=== PATIENT | female | born 1985 | race Two or more races ===

== ENCOUNTER 2020-03-09 16:40 | Emergency (ER) | payer SELFPAY ==
[2020-03-09] MEDS ORDERED: Alum Hydroxide/Mag Hydroxide 15 ML, Lidocaine 2% 15 ML PO ONE ×2 (17:07)
[2020-03-09] MEDS ORDERED: Sodium Chloride 0.9% 10 ML Syringe FLUSH PRN (17:26)
[2020-03-09] MEDS ORDERED: Morphine 4 MG/ML VIAL IVPUSH ONE (17:29)
[2020-03-09] MEDS ORDERED: Ondansetron 4 MG/2 ML SDV IVPUSH ONE (17:29)
[2020-03-09] MEDS ORDERED: Sodium Chloride 0.9% 1,000 ML IV SCH (17:30)
[2020-03-09] MEDS ORDERED: Pantoprazole 40 MG Vial IVPUSH SCH (17:45)
--- NOTE | 2020-03-09 18:33 | EDM.PDOC ---
ED HPI GENERAL MEDICAL PROBLEM - General Chief Complaint: Abdominal Pain Stated Complaint: STOMACH PAINS,BACK PAIN Time Seen by Provider: 03/09/20 16:55 Source of Information: Reports: Patient History Limitations: Reports: No Limitations - History of Present Illness INITIAL COMMENTS - FREE TEXT/NARRATIVE: Patient presented to the ED because of epigastric and LUQ pain which started 2 days ago. The pain is sharp and burning, 7/10, with associated nausea but no vomiting. There is no melena or hematochezia. There is no fever,cough/cold symptoms. She has a h/o PUD and is taking omeprazole 20 mg daily. epigastric Pain Score (Numeric/FACES): 2 - Related Data Allergies Allergy/AdvReac Type Severity Reaction Status Date / Time No Known Allergies Allergy Verified 03/09/20 16:50 Home Meds: Home Meds Omeprazole 20 mg PO DAILY #60 tablet. 03/09/20 [Rx] Sennosides/Docusate Sodium [Senna-S] 2 each PO DAILY PRN #30 tablet 03/09/20 [Rx] Past Medical History Gastrointestinal History: Reports: Other (See Below) Other Gastrointestinal History: states that she recently is diagnosed with ulcer and is supposed to be for EGD. Social & Family History - Family History Family Medical History: Noncontributory - Tobacco Use Smoking Status *Q: Current Every Day Smoker Years of Tobacco use: 10 Packs/Tins Daily: 0.3 Second Hand Smoke Exposure: Yes - Caffeine Use Caffeine Use: Reports: Coffee, Energy Drinks, Soda - Recreational Drug Use Recreational Drug Use: Yes Recreational Drug Type: Reports: Marijuana/Hashish ED ROS GENERAL - Review of Systems Review Of Systems: See Below Constitutional: Reports: No Symptoms HEENT: Reports: No Symptoms Respiratory: Reports: No Symptoms Cardiovascular: Reports: No Symptoms Endocrine: Reports: No Symptoms GI/Abdominal: Reports: Abdominal Pain, Nausea. Denies: Vomiting : Reports: No Symptoms Musculoskeletal: Reports: No Symptoms Skin: Reports: No Symptoms ED EXAM, GI/ABD - Physical Exam Exam: See Below Exam Limited By: No Limitations General Appearance: Alert, No Apparent Distress Ears: Normal External Exam, Normal Canal, Hearing Grossly Normal Nose: Normal Inspection, Normal Mucosa, No Blood Throat/Mouth: Normal Inspection, Normal Lips Head: Atraumatic, Normocephalic Neck: Normal Inspection, Supple, Non-Tender, Full Range of Motion Respiratory/Chest: No Respiratory Distress, Lungs Clear, Normal Breath Sounds Cardiovascular: Normal Peripheral Pulses, Regular Rate, Rhythm, No Edema, No Gallop GI/Abdominal Exam: Normal Bowel Sounds, Soft, Other (epigastric and LUQ T) Back Exam: Normal Inspection Extremities: Normal Inspection, Normal Range of Motion, Non-Tender, No Pedal Edema, Normal Capillary Refill Course - Vital Signs Text/Narrative:: Labs/CT abd-pelvis was discussed with patient and verbalized full understanding NS 1 L bolus Zofran 4 mg IV x1 Morphine 4 mg IV x1 Last Recorded V/S: Last Vital Signs Temp 36.8 C 03/09/20 16:50 Pulse 58 L 03/09/20 19:06 Resp 14 03/09/20 19:06 BP 99/43 L 03/09/20 19:06 Pulse Ox 100 03/09/20 19:06 - Orders/Labs/Meds Orders: Active Orders 24 hr Category Date Time Status Abdomen Pelvis w Cont [CT] Stat Exams 03/09/20 18:31 Taken Saline Lock Insert [OM.PC] Routine Oth 03/09/20 17:26 Ordered Labs: Laboratory Tests 03/09/20 03/09/20 03/09/20 Range/Units 17:32 17:32 17:40 WBC 12.5 H (4.5-12.0) X10-3/uL RBC 4.17 (3.23-5.20) x10(6)uL Hgb 10.3 L (11.5-15.5) g/dL Hct 32.5 (30.0-51.3) % MCV 77.8 L (80-96) fL MCH 24.6 L (27.7-33.6) pg MCHC 31.6 L (32.2-35.4) g/dL RDW 16.7 H (11.5-15.5) % Plt Count 333 (125-369) X10(3)uL MPV 7.9 (7.4-10.4) fL Neut % (Auto) 64.4 (46-82) % Lymph % (Auto) 26.2 (13-37) % Logan % (Auto) 8.2 (4-12) % Eos % (Auto) 1 (1.0-5.0) % Baso % (Auto) 0 (0-2) % Neut # (Auto) 8.1 (1.6-8.3) # Lymph # (Auto) 3.3 (0.6-5.0) # Logan # (Auto) 1.0 (0.0-1.3) # Eos # (Auto) 0.1 (0.0-0.8) # Baso # (Auto) 0.0 (0.0-0.2) # Sodium (135-145) mmol/L Potassium (3.5-5.3) mmol/L Chloride (100-110) mmol/L Carbon Dioxide (21-32) mmol/L BUN (7-18) mg/dL Creatinine (0.55-1.02) mg/dL Est Cr Clr Drug Dosing mL/min Estimated GFR (MDRD) (>60) BUN/Creatinine Ratio (9-20) Glucose (80-116) mg/dL Calcium (8.6-10.2) mg/dL Total Bilirubin (0.1-1.3) mg/dL AST (5-25) IU/L ALT (12-36) U/L Alkaline Phosphatase (56-112) IU/L Total Protein (6.0-8.0) g/dL Albumin (3.5-5.2) g/dL Globulin g/dL Albumin/Globulin Ratio Amylase (25-115) U/L Lipase (73-393) U/L HCG, Quant (<5) mIU/mL Urine Color Yellow (YELLOW) Urine Appearance Cloudy (CLEAR) Urine pH 7.0 H (5.0-6.5) Ur Specific [place] 1.010 (1.010-1.025) Urine Protein Negative (NEGATIVE) mg/dL Urine Glucose (UA) Normal (NORMAL) mg/dL Urine Ketones Negative (NEGATIVE) mg/dL Urine Occult Blood Negative (NEGATIVE) Urine Nitrite Negative (NEGATIVE) Urine Bilirubin Negative (NEGATIVE) Urine Urobilinogen Normal (NEGATIVE) mg/dL Ur Leukocyte Esterase Small H (NEGATIVE) Urine RBC 0-5 (0-5) Urine WBC 0-5 (0-5) Ur Squamous Epith Cells Few H (NS,R,O) Amorphous Sediment Moderate Urine Bacteria Few H (NS) Urine Opiates Screen Negative (NEGATIVE) Ur Oxycodone Screen Negative (NEGATIVE) Ur Propoxyphene Screen Negative (NEGATIVE) Ur Barbituates Screen Negative (NEGATIVE) Ur Tricyclics Screen Negative (NEGATIVE) Ur Phencyclidine Scrn Negative (NEGATIVE) Ur Amphetamine Screen Negative (NEGATIVE) Urine MDMA Screen Negative (NEGATIVE) U Benzodiazepines Scrn Negative (NEGATIVE) U Cocaine Metab Screen Negative (NEGATIVE) U Marijuana (THC) Screen Positive H (NEGATIVE) Ethyl Alcohol (<0.03) % 03/09/20 03/09/20 03/09/20 Range/Units 17:40 17:40 17:40 WBC (4.5-12.0) X10-3/uL RBC (3.23-5.20) x10(6)uL Hgb (11.5-15.5) g/dL Hct (30.0-51.3) % MCV (80-96) fL MCH (27.7-33.6) pg MCHC (32.2-35.4) g/dL RDW (11.5-15.5) % Plt Count (125-369) X10(3)uL MPV (7.4-10.4) fL Neut % (Auto) (46-82) % Lymph % (Auto) (13-37) % Logan % (Auto) (4-12) % Eos % (Auto) (1.0-5.0) % Baso % (Auto) (0-2) % Neut # (Auto) (1.6-8.3) # Lymph # (Auto) (0.6-5.0) # Logan # (Auto) (0.0-1.3) # Eos # (Auto) (0.0-0.8) # Baso # (Auto) (0.0-0.2) # Sodium 140 (135-145) mmol/L Potassium 3.7 (3.5-5.3) mmol/L Chloride 104 (100-110) mmol/L Carbon Dioxide 29 (21-32) mmol/L BUN 12 (7-18) mg/dL Creatinine 0.8 (0.55-1.02) mg/dL Est Cr Clr Drug Dosing 92.76 mL/min Estimated GFR (MDRD) > 60 (>60) BUN/Creatinine Ratio 15.0 (9-20) Glucose 103 (80-116) mg/dL Calcium 8.3 L (8.6-10.2) mg/dL Total Bilirubin 0.2 (0.1-1.3) mg/dL AST 11 (5-25) IU/L ALT 19 (12-36) U/L Alkaline Phosphatase 92 (56-112) IU/L Total Protein 6.9 (6.0-8.0) g/dL Albumin 3.0 L (3.5-5.2) g/dL Globulin 3.9 g/dL Albumin/Globulin Ratio 0.8 Amylase 50 (25-115) U/L Lipase 91 (73-393) U/L HCG, Quant < 5 L (<5) mIU/mL Urine Color (YELLOW) Urine Appearance (CLEAR) Urine pH (5.0-6.5) Ur Specific [place] (1.010-1.025) Urine Protein (NEGATIVE) mg/dL Urine Glucose (UA) (NORMAL) mg/dL Urine Ketones (NEGATIVE) mg/dL Urine Occult Blood (NEGATIVE) Urine Nitrite (NEGATIVE) Urine Bilirubin (NEGATIVE) Urine Urobilinogen (NEGATIVE) mg/dL Ur Leukocyte Esterase (NEGATIVE) Urine RBC (0-5) Urine WBC (0-5) Ur Squamous Epith Cells (NS,R,O) Amorphous Sediment Urine Bacteria (NS) Urine Opiates Screen (NEGATIVE) Ur Oxycodone Screen (NEGATIVE) Ur Propoxyphene Screen (NEGATIVE) Ur Barbituates Screen (NEGATIVE) Ur Tricyclics Screen (NEGATIVE) Ur Phencyclidine Scrn (NEGATIVE) Ur Amphetamine Screen (NEGATIVE) Urine MDMA Screen (NEGATIVE) U Benzodiazepines Scrn (NEGATIVE) U Cocaine Metab Screen (NEGATIVE) U Marijuana (THC) Screen (NEGATIVE) Ethyl Alcohol < 0.03 (<0.03) % Meds: Medications Discontinued Medications Generic Name Dose Route Start Last Admin Trade Name Freq PRN Reason Stop Dose Admin Al Hydroxide/Mg Hydroxide 15 0 ml 03/09/20 17:07 03/09/20 17:13 ml/ Lidocaine HCl 15 ml PO 03/09/20 17:08 30 ml ONETIME ONE Administration Sodium Chloride 1,000 mls @ 999 mls/hr 03/09/20 17:30 03/09/20 17:40 Normal Saline IV 999 mls/hr ASDIRECTED RYLAN Administration Iopamidol 100 ml 03/09/20 18:37 03/09/20 18:46 Isovue-370 (76%) IV 03/09/20 18:38 100 ml . DIRECTED ONE Administration Morphine Sulfate 4 mg 03/09/20 17:29 03/09/20 17:44 Morphine IVPUSH 03/09/20 17:30 4 mg ONETIME ONE Administration Ondansetron HCl 4 mg 03/09/20 17:29 03/09/20 17:44 Zofran IVPUSH 03/09/20 17:30 4 mg ONETIME ONE Administration Pantoprazole Sodium 40 mg 03/09/20 17:45 03/09/20 17:44 Protonix Iv IVPUSH 40 mg Q12H RYLAN Administration Sodium Chloride 10 ml 03/09/20 17:26 03/09/20 17:43 Saline Flush FLUSH 10 ml ASDIRECTED PRN Administration Keep Vein Open Departure - Departure Time of Disposition: 18:35 Disposition: Home, Self-Care 01 Condition: Good Clinical Impression: PUD (peptic ulcer disease), Gastritis, Anemia - Discharge Information Prescriptions: Omeprazole 20 mg PO DAILY #60 tablet.dr [place]/Docusate Sodium [Senna-S] 2 each PO DAILY PRN #30 tablet PRN Reason: Constipation Instructions: Gastritis, Adult, [id number], Anemia, Peptic Ulcer, [id number] Referrals: PCP,None [Primary Care Provider] - Forms: ED Department Discharge Additional Instructions: Please read discharge instructions on PUD,Gastritis AVOID NSAIDS like : aspirin,aleve,ibuprofen etc take omeprazole 20 mg daily For your constipation take senna S, 2 tablets once daily until you have a good bowel movement. follow up with your doctor with regard to your anemia Sepsis Event Note (ED) - Evaluation Sepsis Screening Result: No Definite Risk - My Orders Last 24 Hours: My Active Orders 03/09/20 17:26 Saline Lock Insert [OM.PC] Routine 03/09/20 18:31 Abdomen Pelvis w Cont [CT] Stat - Assessment/Plan Last 24 Hours: My Active Orders 03/09/20 17:26 Saline Lock Insert [OM.PC] Routine 03/09/20 18:31 Abdomen Pelvis w Cont [CT] Stat
[2020-03-09] MEDS ORDERED: Iopamidol 755 Mg/ML 100 ML Bottle IV ONE (18:37)
== END 2020-03-09 20:30 | disposition home or self-care (01) ==
LOC: FB.ED 16:40
DX: K29.70 Gastritis, unspecified, without bleeding (principal); K27.9 Peptic ulcer, site unspecified, unspecified as acute or chronic, without hemorrhage or perforation; D64.9 Anemia, unspecified; F17.210 Nicotine dependence, cigarettes, uncomplicated; Z79.899 Other long term (current) drug therapy
CPT/HCPCS: 36415; 74177; 80053; 80305; 80307; 81001; 82150; 83690; 84702; 85025; 96361; 96374; 96375; 99284; A9270; C9113; J2270; J2405; J7030; Q9967